=== PATIENT | male | born 1950 | race Caucasian/White ===

== ENCOUNTER 2016-07-30 11:00 | Inpatient (IN) | payer MEDICARE, BC ==
[~2016-07-30] VITALS: Ht 182.9 cm; Wt 87.2 kg
--- NOTE | ~2016-07-30 | OR ---
PATIENT'S NAME: JAYA GRIGGS [facility] AGE: 66 Y [address] ROOM: [id number] [place], [place] [address] LOCATION: [facility] ADMIT DATE: 08/12/2016 OR/Procedure Report DISCHARGE DATE: FAMILY PHYSICIAN: ROSA ORELLANA ATTENDING PHYSICIAN: TOMAS MEHTA SURGEON: Tomas Mehta MD CERTIFIED FLEX ENDOSCOPE REPROCESSOR: 1. JOSIAH Luis. 2. Tomas Dalal. DATE OF PROCEDURE: 08/12/2016 PREOPERATIVE DIAGNOSIS: Right knee degenerative joint disease. POSTOPERATIVE DIAGNOSIS: Right knee degenerative joint disease. PROCEDURE PERFORMED: Right knee medial compartment, unicompartment arthroplasty using [place] Jeremy robotic arm guidance and computer navigation. ANESTHESIA: Spinal plus adductor canal block plus subcutaneous and periarticular local anesthesia (ropivacaine with epinephrine). DRAINS: None. SPECIMEN: None. COMPLICATIONS: None. ESTIMATED BLOOD LOSS: Less than 10 mL. IMPLANTS: Reji Jeremy RESTORIS size 6 right medial femoral component. Size 6 right medial tibial component. A 9 mm right medial X3 tibial polyethylene insert. INDICATION FOR PROCEDURE: Mr. Griggs is a 66-year-old male presenting with advanced right knee degenerative joint disease and associated severely compromised activities of daily living. His discomfort is localized to the medial compartment. His plain radiographic disease is confined to his medial compartment. Risks, benefits, limitations, and alternatives to medial compartment unicompartmental arthroplasty versus total knee arthroplasty have been thoroughly reviewed, and informed consent has been granted. The patient understands the final decision regarding whether or not to proceed with medial compartment, unicompartmental arthroplasty versus total knee arthroplasty will be made intraoperatively. We have specifically reviewed risks and implications of infection, stiffness, neurovascular complications, blood transfusion risks, wear, loosening, deep PATIENT'S NAME: JAYA GRIGGS [facility] AGE: 66 Y [address] ROOM: [id number] [place], [place] [address] LOCATION: [facility] ADMIT DATE: 08/12/2016 OR/Procedure Report DISCHARGE DATE: FAMILY PHYSICIAN: ROSA ORELLANA ATTENDING PHYSICIAN: TOMAS MEHTA venous thrombosis, pulmonary embolism, mortality, progression of arthritis in the other two compartments, and potential need for conversion to total knee arthroplasty have been thoroughly reviewed, and informed consent granted. DESCRIPTION OF PROCEDURE: The patient positioned supine after administration of regional anesthesia and prophylactic antibiotics. A well-padded pneumatic tourniquet was placed around his right proximal thigh, and his right lower extremity was prepped and draped with vigilant sterile technique. Attention was first focused on the examination under anesthesia, which demonstrated a moderate effusion and 0 to 135 degrees of flexion. There was no ligamentous insufficiency. There were no active skin lesions or masses. After the right lower extremity had been prepped and draped with vigilant sterile technique, an abridged medial parapatellar quadriceps sparing arthrotomy was performed. There was a moderate amount of benign-appearing translucent synovial fluid. There were very small osteophytes at the medial femoral condyle and medial tibial plateau. There was a 1 cm diameter region of mild grade 3 chondromalacia at the apex of the patella. This involved less than 25% of the thickness of the articular cartilage of the patella. The femoral trochlea articular cartilage and lateral femoral condyle articular cartilage was normal. There were no loose bodies. There was no synovitis. The cruciate ligaments were intact. There was full-thickness loss of articular cartilage involving approximately 50% of the medial femoral condyle and medial tibial plateau. There was extensive partial-thickness articular cartilage loss throughout the remainder of the medial compartment. There was degenerative tearing of the remnant of the medial meniscus. Tibial and femoral Steinmann pins were placed through stab incisions with the appropriate soft tissue protectors. Pins were placed through the near cortex and abutted the far cortex. These were used to anchor the tibial and femoral computer navigation guidance trackers. The tracking system was calibrated. The software was utilized to optimize component alignment and ligamentous balancing and tracking. The Jeremy bur was utilized to prepare the articular surfaces of the of the medial femoral condyle and medial tibial plateau. The medial meniscectomy was completed. The joint space was thoroughly irrigated with bacteriostatic pulsatile saline lavage several times throughout the case. The medial collateral ligament and anterior cruciate ligament footprints were vigilantly protected throughout the entire case. A trial reduction confirmed correction to 1 degree of residual varus (the patient had started at 6 degrees of varus). Tracking was optimal. All trial components were removed. Periarticular soft tissues were injected PATIENT'S NAME: JAYA GRIGGS [facility] AGE: 66 Y [address] ROOM: [id number] [place], [place] [address] LOCATION: [facility] ADMIT DATE: 08/12/2016 OR/Procedure Report DISCHARGE DATE: FAMILY PHYSICIAN: ROSA ORELLANA ATTENDING PHYSICIAN: TOMAS MEHTA with a mixture of ropivacaine with epinephrine and Toradol. Prepared osseous surfaces were thoroughly irrigated and dried prior to cementing the tibial and femoral components in a single stage using [place] Simplex cement containing premixed tobramycin. All excess cement was removed. Tracking was once again confirmed to be optimal (tibial femoral as well as patellofemoral). There was less than 1 mm of laxity in full extension, mid flexion, and 90 degrees of flexion. The incision was thoroughly irrigated one final time prior to closure of the arthrotomy with multiple simple interrupted #1 Vicryl. Subcutaneous tissues were thoroughly irrigated one final time prior to reapproximation with simple, deep, interrupted 0 Vicryl. The skin was closed with superficial buried interrupted 2-0 Vicryl followed by surgical adarsh. The tibial and femoral Steinmann pins were removed intact, and their respective incisions were thoroughly irrigated prior to closure with a single superficial buried interrupted 3-0 Monocryl and surgical adarsh each. The dressings consisted of Xeroform gauze followed by sterile gauze, ABD pads, and an Uli wrap. There were no complications. MD NETO GUZMAN/pancho /[id number] d: 08/12/160 t: 08/15/16 2222, OPERATIVE SUMMARY
[~2016-07-30 11:00] MED LIST: ASPIRIN EC81 MG PO; CRESTOR20 MG PO; NASONEX NASAL S17 GM NOSE; PRILOSEC20 MG PO; THERA-VITE W/ B1 TAB PO; ZANTAC (NON-FO150 MG PO
[2016-08-12] MEDS ORDERED: MUCINEX DM ER1 EAC1 PO (09:00)
--- NOTE | 2016-08-12 17:14 | NUR ---
Met with patient and . Patient attended the preop class. Reports he lives in [place] with in one level home. Has 4 steps to get in home; has railing on right side. Has the following equipment: walker, cane, crutches, bath seat. Has a walk in shower. Reviewed and encouraged use of IS. Encouraged waving of feet. Has TEDs and foot pumps on bilat. Will follow and assist as needed.
--- NOTE | 2016-08-12 17:45 | NUR ---
Pt here from PACU at 1550. He had spinal and adductor canal block. 4th 30 min VS for you will be due st 1835. IV ATB due at 8 pm. Pt sensation mostly returned down to feet with slight numbness and tingling, except groin and buttocks still numb. Pt incontinent urine. Will scan bladder and possible straight cath. Dressing dry and intact. Ice to knee. Pt hasn't been up yet. Dilaudid at 1710 for aching knee rated at 2. Pt uses IS at 2000. Tolerated supper well. He wants pneumonia vaccination prior to discharge. Pt is on room air.
--- NOTE | 2016-08-12 18:19 | NUR ---
Pt bladder scan over 999. Straight cath at 1810 and 1000 ml urine out.
--- NOTE | 2016-08-13 05:05 | NUR ---
Significant Event: Dressing is clean, dry and intact. CSM WNL. 1 assist with transfers. Voids without difficulty. Last Dilaudid at 0322. Follow up:
[2016-08-13] MEDS ORDERED: TYLENOL EXTRA500 MG PO (11:38)
[2016-08-13] MEDS ORDERED: COLACE100 MG PO (11:39)
[2016-08-13] MEDS ORDERED: NEURONTIN300 MG PO (11:42)
[2016-08-13] MEDS ORDERED: MIRALAX17 GM PO (11:46)
[2016-08-13] MEDS ORDERED: XARELTO10 MG PO (11:47)
[2016-08-13] MEDS ORDERED: DILAUDID 2MG(HYD2 MG PO (11:48)
[2016-08-13] MEDS ORDERED: CELEBREX200 MG PO (11:49)
--- NOTE | 2016-08-13 17:02 | NUR ---
PT HAS BEEN ALERT AND ORIENTED. HE HAS BEEN UP WITH 1 TO STANDBY ASSIST WITH WALKER. DRESSING CHANGED BY PA AND HAS MEPILEX X2 DRESSINGS TO RT KNEE. CSM WNL. PT DOES IS AT 3000. GOOD INTAKE AND OUTPUT. HAS RATED PAIN FROM 1-2. USES DILAUDID. ICE TO KNEE AND LEGS ELEVATED. PT AND SPOUSE VERBALIZE UNDERSTANDING OF ALL INSTRUCTIONS. PT HAD PNEUMOVAX INJECTION. PT HAS ALL BELONGINGS AND DISCHARGED TO HOME IN STABLE CONDITION.
--- NOTE | 2016-08-13 17:38 | NUR ---
I was preceptor for Student nurse Erin Lemon for this shift and i agree with her charting.
== END 2016-08-13 15:05 | disposition disaster alternative care site (69) | DRG 470 ==
LOC: G3N 08-12 08:20
PROVIDERS: ADMIT Orthopaedic Surgery
PROC: 8E0YXBZ Computer Assisted Procedure of Lower Extremity (ICD-10-PCS; principal; 2016-08-12)
PROC: 8E0Y0CZ Robotic Assisted Procedure of Lower Extremity, Open Approach (ICD-10-PCS; principal; 2016-08-12)
PROC: 0SRC0L9 Replacement of Right Knee Joint with Medial Unicondylar Synthetic Substitute, Cemented, Open Approach (ICD-10-PCS; principal; 2016-08-12)
DX: M17.11 Unilateral primary osteoarthritis, right knee (principal); E78.5 Hyperlipidemia, unspecified; Z79.82 Long term (current) use of aspirin; K21.9 Gastro-esophageal reflux disease without esophagitis; Z23 Encounter for immunization
CPT/HCPCS: C1713; C1776; G0009; J0690; J1100; J1885; J2250; J2765; J2795; J7120

== ENCOUNTER → 2016-08-01 | Outpatient (CLI) | payer MEDICARE, BC ==
[~2016-08-01] MED LIST changes: +CELEBREX200 MG PO; +COLACE100 MG PO; +DILAUDID 2MG(HYD2 MG PO; +MIRALAX17 GM PO; +MUCINEX DM ER1 EAC1 PO; +NEURONTIN300 MG PO; +TYLENOL EXTRA500 MG PO; +XARELTO10 MG PO
== END | disposition disaster alternative care site (69) ==
LOC: GNJRC 10:09
DX: Z01.812 Encounter for preprocedural laboratory examination (principal); M17.11 Unilateral primary osteoarthritis, right knee; M25.561 Pain in right knee